=== PATIENT | female | born 1955 | race Two or more races ===

== ENCOUNTER → 2018-03-17 | Outpatient (CLI) | payer OTHER ==
--- NOTE | 2018-03-18 13:33 | MM ---
Reason for exam: screening (asymptomatic). History: Patient is postmenopausal. Physical Findings: A clinical breast exam by your physician is recommended on an annual basis and results should be correlated with mammographic findings. MG Screening Mammo w CAD Bilateral CC, MLO, and XCCL view(s) were taken. No prior studies available for comparison. There are scattered fibroglandular densities. No suspicious abnormality. Left upper outer quadrant posterior depth mole is noted with marker on XCCL only. ASSESSMENT: Negative, BI-RAD 1 RECOMMENDATION: Routine screening mammogram of both breasts in 1 year.
== END | disposition home or self-care (01) ==
LOC: RADMAMWWP 13:17
PROVIDERS: ATTEND Family Medicine
DX: Z12.31 Encounter for screening mammogram for malignant neoplasm of breast (principal)
CPT/HCPCS: 77067

== ENCOUNTER → 2019-04-24 | Outpatient (CLI) | payer BC ==
--- NOTE | 2019-04-24 11:50 | MM ---
Reason for exam: screening (asymptomatic). Last mammogram was performed 1 year and 1 month ago. History: Patient is postmenopausal. Family history of breast cancer in sister at age 40. Physical Findings: A clinical breast exam by your physician is recommended on an annual basis and results should be correlated with mammographic findings. MG Screening Mammo w CAD Bilateral CC and MLO view(s) were taken. Prior study comparison: March 17, 2018, bilateral MG screening mammo w CAD. There are benign appearing round calcifications in the left breast. New grouped indistinct calcifications in the right breast anterior middle depth outer aspect. ASSESSMENT: Incomplete: need additional imaging evaluation, BI-RAD 0 RECOMMENDATION: Special view mammogram of the right breast. [facility] will attempt to contact patient to return for supplemental views.
== END | disposition home or self-care (01) ==
LOC: RADMAMWWP 07:33
PROVIDERS: ATTEND Family Medicine
DX: Z12.31 Encounter for screening mammogram for malignant neoplasm of breast (principal)
CPT/HCPCS: 77067

== ENCOUNTER → 2019-04-26 | Outpatient (CLI) | payer BC ==
--- NOTE | 2019-04-26 11:06 | MM ---
Reason for exam: additional evaluation requested from abnormal screening. Last mammogram was performed less than 1 month ago. History: Patient is postmenopausal. Family history of breast cancer in sister at age 40. Physical Findings: Nurse did not find any significant physical abnormalities on exam. MG Work Up Mamm w CAD RT CC with magnification, ML with magnification, and ML view(s) were taken of the right breast. Prior study comparison: April 24, 2019, bilateral MG screening mammo w CAD. March 17, 2018, bilateral MG screening mammo w CAD. Finding: There are coarse calcifications in the outer quadrant, central position of the right breast. These results were verbally communicated with the patient and result sheet given to the patient on 04/26/19. ASSESSMENT: Probably benign, BI-RAD 3 RECOMMENDATION: Follow-up diagnostic mammogram of the right breast in 6 months.
== END | disposition home or self-care (01) ==
LOC: RADMAMWWP 10:00
PROVIDERS: ATTEND Family Medicine
DX: R92.8 Other abnormal and inconclusive findings on diagnostic imaging of breast (principal)
CPT/HCPCS: 77065

== ENCOUNTER → 2019-06-19 | Outpatient (CLI) | payer OTHER ==
--- NOTE | 2019-06-19 16:44 | XR ---
EXAMINATION TYPE: XR Hip RT and AP Pelvis DATE OF EXAM: 06/19/2019 COMPARISON: NONE HISTORY: Pain TECHNIQUE: A single AP view of the pelvis is obtained. Two views of the right hip are obtained. FINDINGS: The pelvic ring is intact. Proximal femurs and hip joints appear normal. There is no sign o f hip dysplasia. Sacroiliac joints appear normal. IMPRESSION: Normal pelvis and right hip exam.
== END | disposition home or self-care (01) ==
LOC: RADXRMAIN 15:48
PROVIDERS: ATTEND Emergency Medicine
DX: S70.01XA Contusion of right hip, initial encounter (principal)
CPT/HCPCS: 73502

== ENCOUNTER 2019-07-05 07:22 | Day surgery (SDC) | payer BC ==
[2019-07-03 15:04] VITALS: BMI 35.4
[~2019-07-05 07:22] MED LIST: LACTATED RINGERS 1,000 ML IV SCH; LIDOCAINE 1% 20 ML VIAL (10MG/ML) FOR IV START INTRADERMA PRN
--- NOTE | 2019-07-05 07:29 | P.GSHP ---
History of Present Illness H&P Date: 07/05/19 CHIEF COMPLAINT: Colon screen HISTORY OF PRESENT ILLNESS: The patient is a 64-year-old female who presents for colon screen. Lower endoscopy was offered for further evaluation and management. PAST MEDICAL HISTORY: Please see list. PAST SURGICAL HISTORY: Please see list. MEDICATIONS: Please see list. ALLERGIES: Please see list. SOCIAL HISTORY: No illicit drug use FAMILY HISTORY: No reports of Crohn disease or ulcerative colitis. REVIEW OF ORGAN SYSTEMS: CONSTITUTIONAL: No reports of fevers or chills. PHYSICAL EXAM: VITAL SIGNS: Stable GENERAL: Well-developed pleasant in no acute distress. HEENT: No scleral icterus. Extraocular movements grossly intact. Moist buccal mucosa. NECK: Supple without lymphadenopathy. CHEST: Unlabored respirations. Equal bilateral excursions. CARDIOVASCULAR: Regular rate and rhythm. Distal 2+ pulses. ABDOMEN: Soft, nontender, nondistended. MUSCULOSKELETAL: No clubbing, cyanosis, or edema. ASSESSMENT: 1. Colon screen. PLAN: 1. Recommend proceeding with a lower endoscopy Past Medical History Past Medical History: Diabetes Mellitus, Hyperlipidemia, Hypertension Additional Past Medical History / Comment(s): Cologuard +ve. History of Any Multi-Drug Resistant Organisms: None Reported Past Surgical History: Appendectomy, Cholecystectomy, Hysterectomy, Orthopedic Surgery Additional Past Surgical History / Comment(s): Left ankle surgery. Past Anesthesia/Blood Transfusion Reactions: No Reported Reaction Past Psychological History: No Psychological Hx Reported Smoking Status: Never smoker Past Alcohol Use History: None Reported Past Drug Use History: None Reported - Past Family History Sister(s) Family Medical History: Cancer Additional Family Medical History / Comment(s): 3 sisters had cancer. Medications and Allergies Home Medications Medication Instructions Recorded Confirmed Type Acetaminophen [Tylenol Extra 1,000 mg PO Q4H PRN 07/03/19 07/03/19 History Strength] Aspirin [Adult Low Dose Aspirin EC] 81 mg PO HS 07/03/19 07/03/19 History Atorvastatin [Lipitor] 80 mg PO HS 07/03/19 07/03/19 History Benazepril HCl 40 mg PO QAM 07/03/19 07/03/19 History Glimepiride [Amaryl] 1 mg PO DAILY 07/03/19 07/03/19 History Vitamin D 250 mg PO Q14D 07/03/19 07/03/19 History amLODIPine BESYLATE 5 mg PO DAILY 07/03/19 07/03/19 History metFORMIN HCL [Glucophage] 500 mg PO 1700 07/03/19 07/03/19 History Allergies Allergy/AdvReac Type Severity Reaction Status Date / Time codeine Allergy Nausea & Verified 07/03/19 15:04 Vomiting
[2019-07-05 07:45] VITALS: RESP 18; TEMP 97.8
[2019-07-05 07:55] LABS: Glucose,Whole Blood 109 mg/dL (75-99)
[2019-07-05] MEDS ORDERED: LACTATED RINGERS 1,000 ML IV ONE ×2 (07:55→08:00)
[2019-07-05] MEDS ORDERED: PROPOFOL 10 MG/ML 20 ML VIAL IV ONE (07:57)
--- NOTE | 2019-07-05 08:23 | P.PCN ---
Date of Procedure: 07/05/19 Description of Procedure: PREOPERATIVE DIAGNOSIS: Colonoscopy screening, first Family history colon cancer POSTOPERATIVE DIAGNOSIS: Colonoscopy screening, first Family history colon cancer Tubular adenoma sigmoid colon Sigmoid diverticulosis OPERATION: Colonoscopy to the ileocecal valve Colonoscopy with hot snare polypectomy SURGEON: Soledad Montero MD. ANESTHESIA: MAC. INDICATIONS: The patient is a 64-year-old female who presents for colonoscopy screening. She presents for her first colonoscopy screening. Benefits and risks were described and informed consent was obtained. DESCRIPTION OF PROCEDURE: The patient had undergone Golytely prep. She had been brought into the operating room and laid in the left lateral decubitus position. After adequate intravenous sedation, the rectum was examined with 2% lidocaine jelly. No external hemorrhoids were encountered. The rectal tone was within normal limits. No lesions were palpated in the rectal vault. An Olympus colonoscope was advanced until the ileocecal valve and appendiceal orifice were clearly viewed. The prep was good with visualization of the mucosal folds. Abdominal wall pressure was used to advance the scope to the ascending colon with few of the ileocecal valve. The scope was removed with visualization of each mucosal fold. Scattered diverticulosis was encountered. A sigmoid colon polyp was treated with snare polypectomy. No evidence of focal colitis was found. Retroflexion of the scope demonstrated no internal hemorrhoids. The colon was desufflated. The patient had tolerated the procedure well. Withdrawal time was over 6 minutes. FINDINGS: Aronchick preparation quality scale 1 (1-5) No internal hemorrhoids No external hemorrhoids No arteriovenous malformations Highly redundant sigmoid colon Sigmoid diverticulosis without diverticulitis Removal of 1 polyp: - Snare polypectomy 20 cm from the anal verge, 8 mm tubulovillous adenoma polyp. No focal colitis. RECOMMENDATIONS: Repeat colonoscopy in 3 years, 2021. Plan - Discharge Summary Discharge Rx Participant: No New Discharge Prescriptions: No Action metFORMIN HCL [Glucophage] 500 mg PO 1700 amLODIPine BESYLATE 5 mg PO DAILY Atorvastatin [Lipitor] 80 mg PO HS Glimepiride [Amaryl] 1 mg PO DAILY Vitamin D 250 mg PO Q14D Benazepril HCl 40 mg PO QAM Aspirin [Adult Low Dose Aspirin EC] 81 mg PO HS Acetaminophen [Tylenol Extra Strength] 1,000 mg PO Q4H PRN PRN Reason: Pain Discharge Medication List Acetaminophen [Tylenol Extra Strength] 1,000 mg PO Q4H PRN 07/03/19 [History] Aspirin [Adult Low Dose Aspirin EC] 81 mg PO HS 07/03/19 [History] Atorvastatin [Lipitor] 80 mg PO HS 07/03/19 [History] Benazepril HCl 40 mg PO QAM 07/03/19 [History] Glimepiride [Amaryl] 1 mg PO DAILY 07/03/19 [History] Vitamin D 250 mg PO Q14D 07/03/19 [History] amLODIPine BESYLATE 5 mg PO DAILY 07/03/19 [History] metFORMIN HCL [Glucophage] 500 mg PO 1700 07/03/19 [History] Follow up Appointment(s)/Referral(s): Soledad Montero MD [STAFF PHYSICIAN] - As Needed Patient Instructions/Handouts: Diverticulosis Diet (GEN), Diverticulosis (DC), Colorectal Polyps (DC) Activity/Diet/Wound Care/Special Instructions: Repeat colonoscopy 3 years, 2021 Discharge Disposition: HOME SELF-CARE
[2019-07-05 08:38] VITALS: BP 121/74; PULSE 67
== END 2019-07-05 08:54 | disposition home or self-care (01) ==
LOC: ORWHC2ENDO 07:22
PROVIDERS: ATTEND Surgery Plastic and Reconstructive Surgery
DX: Z12.11 Encounter for screening for malignant neoplasm of colon (principal); D12.5 Benign neoplasm of sigmoid colon; E11.9 Type 2 diabetes mellitus without complications; E78.5 Hyperlipidemia, unspecified; I10 Essential (primary) hypertension; K57.30 Diverticulosis of large intestine without perforation or abscess without bleeding; Z79.82 Long term (current) use of aspirin; Z79.84 Long term (current) use of oral hypoglycemic drugs; Z80.0 Family history of malignant neoplasm of digestive organs; Z90.49 Acquired absence of other specified parts of digestive tract; Z88.5 Allergy status to narcotic agent
CPT/HCPCS: 88305; 45385; J2704

== ENCOUNTER → 2019-11-22 | Outpatient (CLI) | payer BC ==
--- NOTE | 2019-11-22 09:06 | MM ---
Reason for exam: follow-up at short interval from prior study. Last mammogram was performed 7 months ago. History: Patient is postmenopausal. Family history of breast cancer in sister at age 40. Physical Findings: Nurse did not find any significant physical abnormalities on exam. MG Diagnostic Mammo RT w CAD CC and MLO view(s) were taken of the right breast. Prior study comparison: April 26, 2019, right breast MG work up mamm w CAD RT. April 24, 2019, bilateral MG screening mammo w CAD. Finding: There are increased typically benign round, grouped/clustered calcifications in the 9 o'clock outer quadrant, middle position of the right breast. Linear calcifications posterior right breast MLO may be vascular. New finding since April 26, 2019 and April 24, 2019. These results were verbally communicated with the patient and result sheet given to the patient on 11/22/19. ASSESSMENT: Probably benign, BI-RAD 3 RECOMMENDATION: Follow-up diagnostic mammogram of both breasts in 6 months.
== END | disposition home or self-care (01) ==
LOC: RADMAMWWP 08:07
PROVIDERS: ATTEND Family Medicine
DX: N63.10 Unspecified lump in the right breast, unspecified quadrant (principal); R92.8 Other abnormal and inconclusive findings on diagnostic imaging of breast
CPT/HCPCS: 77065

== ENCOUNTER → 2024-02-01 | Outpatient (CLI) | payer MEDICARE ==
--- NOTE | 2024-02-04 18:15 | MM ---
Reason for Exam: Screening (asymptomatic). Last mammogram was performed 4 year(s) and 9 month(s) ago. Patient History: Menarche at age 16. First Full-Term at age 20. Left ovary removed at age 40. Right ovary removed at age 40. Hysterectomy at age 40. Postmenopausal. Sister had breast cancer, age 40. Risk Values: Mel 5 year model risk: 3.0%. NCI Lifetime model risk: 9.5%. Prior Study Comparison: 04/24/2019 Bilateral Screening Mammogram, [facility]. 04/26/2019 Right Diagnostic Mammogram, [facility]. 11/22/2019 Right Diagnostic Mammogram, [facility]. Tissue Density: The breasts are almost entirely fatty. Findings: Analyzed By CAD. The pattern is symmetrical. Pattern appears stable. No significant interval change. Benign calcifications within the left breast. Some punctate benign-appearing calcifications are within the right breast No suspicious groups of microcalcifications, spiculated or lobular masses, architectural distortion or other secondary signs of malignancy are mammographically apparent. Overall Assessment: Benign, BI-RAD 2 Management: Screening Mammogram of both breasts in 1 year. A negative mammogram report should not preclude additional follow up of suspicious palpable abnormalities. Patient should continue monthly self breast exam. A clinical breast exam by your physician is recommended on an annual basis and results should be correlated with mammographic findings. Electronically signed and approved by: Carmelo Hernandez D.O. Radiologis
== END | disposition home or self-care (01) ==
LOC: RADMAMWWP 11:43
PROVIDERS: ATTEND Family Medicine
DX: Z12.31 Encounter for screening mammogram for malignant neoplasm of breast (principal); Z78.0 Asymptomatic menopausal state; Z80.3 Family history of malignant neoplasm of breast
CPT/HCPCS: 77063; 77067